=== PATIENT | male | born 1945 | race Caucasian/White ===

== ENCOUNTER 2017-07-08 20:03 | Emergency (ER) | payer MEDICAID, OTHER ==
[~2017-07-08] VITALS: Ht 180.3 cm; Wt 95.0 kg
[~2017-07-08 20:03] MED LIST: ALBU18HF INH; ASPI-535 PO; GABA300C16; HUM100VI8 SQ; IPRA4AER IH; LOSA100T7 PO; LOSA50TA2 PO; METO-448 PO; MTF1000T PO; REG SC; SIMV20TA2 PO; TAMS-14 PO; TRAM50TA2 PO
[2017-07-08 21:35] VITALS: Ht 180.3 cm; Wt 95.0 kg
[2017-07-08] MEDS ORDERED: HYDR-3011 PO (22:48)
[2017-07-08] MEDS ORDERED: ACYC800T57 PO (22:48)
--- NOTE | 2017-07-08 22:53 | ERD ---
ER Documentation Chief Complaint Date/Time DATE: 07/08/17 TIME: 22:51 Chief Complaint bite on his right leg 3 days ago HPI 72-year-old male presents to emergency department for rash in the right lower leg and itching and the right thigh area. Patient is complaining of itching, also burning pain 4/10 erythematous with touching the area.Patient did not take any medications or foods symptoms. Patient denies any fever or chills.patient denies any family members with the same type of symptoms. ROS All systems reviewed and are negative except as per history of present illness. Medications Home Meds Active Scripts Hydroxyzine Hcl* (Hydroxyzine Hcl*) 25 Mg Tablet, 25 MG PO Q8H Y for ITCHING, # 30 TAB Prov:BRADLY HAQ NP 07/08/17 Acyclovir* (Zovirax*) 800 Mg Tablet, 800 MG PO 5 TIMES DAILY for 7 Days, TAB Prov:BRADLY HAQ NP 07/08/17 Tramadol HCl (Tramadol HCl) 50 Mg Tab, 50 MG PO Q6, #20 TAB Prov:KOLE MENDOZA 05/02/15 Albuterol/Ipratropium* (Combivent Respimat*) 20-100 Mcg/Inh - 4 Gm Aer.w.adap, 1 PUFF IH QID Y for SHORTNESS OF BREATH, #1 INH Prov:JACEY ADAMS MD 09/15/14 Albuterol Sulfate* (Ventolin HFA*) 1 Puff Inha, 4 PUFF INH Q2H Y for SHORTNESS OF BREATH, #1 INH Prov:JACEY ADAMS MD 09/15/14 Reported Medications Aspirin Ec (Aspir 81) 81 Mg Tablet.dr, 81 MG PO DAILY 12/23/13 Hum Insulin Nph/Reg Insulin Hm (Humulin 70-30 Vial) 100 Units/Ml Vial, 25 SQ, VIAL 12/23/13 Insulin Human Regular (Novolin-R) 100 Unit/Ml Soln, 25 SC 12/23/13 Metformin* (Glucophage*) 1,000 Mg Tablet, 1000 MG PO BID 12/23/13 Simvastatin (Simvastatin) 20 Mg Tablet, 20 MG PO DAILY 12/23/13 Losartan Potassium* (Losartan Potassium*) 100 Mg Tablet, 100 MG PO DAILY 12/23/13 Tamsulosin Hcl* (Flomax*) 0.4 Mg Cap.sr.24h, 0.4 MG PO DAILY 03/02/13 Metformin* (Glucophage*) 1,000 Mg Tablet, 1000 MG PO BID 03/02/13 Metoprolol Tartrate* (Lopressor*) 25 Mg Tab, 25 MG PO BID 03/02/13 Losartan Potassium* (Cozaar*) 50 Mg Tablet, 50 MG PO DAILY 03/02/13 Gabapentin* (Gabapentin*) 300 Mg Capsule, 300 MG .ROUTE DAILY 03/02/13 Allergies Allergies: Coded Allergies: No Known Allergy (Unverified , 07/08/17) PMhx/Soc History of Surgery: Yes (R EYE CATERACT SURGERY) Anesthesia Reaction: No Hx Neurological Disorder: No Hx Respiratory Disorders: No Hx Cardiac Disorders: Yes (HTN) Hx Psychiatric Problems: No Hx Miscellaneous Medical Probl: Yes (DM, HIGH CHOLESTEROL ) Hx Alcohol Use: No Hx Substance Use: No Hx Tobacco Use: No (QUIT 1997) Smoking Status: Never smoker FmHx Family History: No coronary disease, No diabetes, No other Physical Exam Vitals Vital Signs Date Time Temp Pulse Resp B/P Pulse Ox O2 Delivery O2 Flow Rate FiO2 07/08/17 21:35 97.8 77 18 152/86 96 Physical Exam GENERAL: The patient is well developed and appropriate for usual state of health, in no apparent distress. CHEST: Clear to auscultation bilaterally. There are no rales, wheezes or rhonchi. HEART: Regular rate and rhythm. No murmurs, clicks, rubs or gallops. No S3 or S4. ABDOMEN: Soft, nontender and nondistended. Good bowel sounds. No rebound or guarding. No gross peritonitis. No gross organomegaly or masses. No Slaughter sign or McBurney point tenderness. BACK: No midline or flank tenderness. EXTREMITIES: Equal pulses bilaterally. There is no peripheral clubbing, cyanosis or edema. No focal swelling or erythema. Full range of motion. Grossly neurovascularly intact. NEURO: Alert and oriented. Cranial nerves 2-12 intact. Motor strength in all 4 extremities with 5/5 strength. Sensation grossly intact. Normal speech and gait. SKIN: vesicular rash in the level of the right L3 and L4 dermatome.There is no apparent ecchymosis or petechia. The skin is warm and dry. HEMATOLOGIC AND LYMPHATIC: There is no evidence of excessive bruising or lymphedema. No gross cervical, axillary, or inguinal lymphadenopathy. Procedures/MDM medical decision making: Patient's symptoms are most likely consistent with shingles. No symptoms of any coagulopathies. No symptoms of allergic reaction. No symptoms of any sepsis at this time, patient upper sne is hemodynamically stable. Patient was given a prescription for acyclovir, hydroxyzine, is advised to follow-up with primary care doctor in 2-3 days for reevaluation of symptoms. Patient is advised to return to emergency department for any worsening symptoms. Disposition: Home. Stable. Departure Diagnosis: Primary Impression: Shingles Herpes zoster complications: without complications Qualified Code: B02.9 - Herpes zoster without complication Condition: Stable Patient Instructions: Shingles (Herpes Zoster) BRADLY HAQ NP Jul 08, 2017 22:53
== END 2017-07-08 23:29 | disposition home or self-care (01) ==
LOC: FTE 20:03
DX: B02.9 Zoster without complications (principal); I10 Essential (primary) hypertension; E11.9 Type 2 diabetes mellitus without complications; Z79.4 Long term (current) use of insulin; Z79.84 Long term (current) use of oral hypoglycemic drugs
CPT/HCPCS: 99284